=== PATIENT | male | born 1945 | race Caucasian/White ===

== ENCOUNTER 2025-05-31 05:24 | Day surgery (SDC) | payer OTHER ==
[2025-05-18 15:12] LABS: LEUKOCYTE ESTERASE ,URINE NEGATIVE (Neg); NITRITES, URINE NEGATIVE (Neg); OCCULT BLOOD,URINE NEGATIVE (Neg)
[2025-05-18 15:13] LABS: UA COLLECTION TYPE VOIDED
[2025-05-18 15:18] LABS: MUCUS STRANDS NONE SEEN /LPF (Neg); SQUAMOUS EPITHELIAL CELL,UR FEW /LPF (FEW)
[2025-05-18 15:23] LABS: PRE OP INR 1.1 INR; PRE OP PARTIAL THROMB. TIME 25.0 SECONDS (22-32); PRE OP PROTIME 10.8 SECONDS (9.0-12.0)
[2025-05-18 15:31] LABS: CREATININE 1.68 MG/DL (0.60-1.10); PRE OP ALT 24 U/L (30-65); PRE OP ANION GAP 5 (8-16); PRE OP AST 16 U/L (10-37); PRE OP BILIRUB, TOTAL 0.7 MG/DL (0.0-1.0); PRE OP GLUCOSE 172 MG/DL (70-104); PRE OP POTASSIUM 4.0 MMOL/L (3.4-5.1); PRE OP SODIUM 142 MMOL/L (135-145); TOTAL CARBON DIOXIDE 31.3 MMOL/L (24-32); eGFR 40 ML/MIN
[2025-05-18 15:38] LABS: MEAN PLATELET VOLUME 9.2 FL (7.4-10.4); PRE OP HEMATOCRIT 42.7 % (42.0-52.0); PRE OP HEMOGLOBIN 14.8 g/dL (14.0-17.9); PRE OP WHITE BLOOD COUNT 4.8 10'3 (4.8-10.8); RED CELL DISTRIBUTION WIDTH 13.9 % (11.5-14.5)
[2025-05-18 15:39] LABS: PRE OP PLATELET COUNT 94 X10'3 (140-440)
[~2025-05-31] VITALS: Ht 165.1 cm; Wt 82.9 kg
[2025-05-31] VITALS (8 sets, daily range): BP systolic 91–111; BP diastolic 51–66; PULSE 55–68; RESP 11–16; TEMP 98; O2SAT 93–100
[~2025-05-31 05:24] MED LIST: ATOR20TA66 PO; CHOL100017 PO; CYAN-36 PO; EMPA25TA PO; FOLI0.4T3 PO; GABA300C PO; LACT1CAP26 PO; LANTUS SUBCUT; SEMA1PEN3 SUBCUT; VIT1CAPS46 PO
[2025-05-31] MEDS: ceFAZolin 2gm/dext,iso 50mL 50 ML IV ONE (05:52)
[2025-05-31] MEDS: ringers solution, lacted 1,000 ML IV SCH (06:05)
[2025-05-31] MEDS ORDERED: cloNIDine hcl/PF 100mcg/ml inj ONE (07:16)
[2025-05-31] MEDS ORDERED: propofol inj 20 ML IV ONE (07:19)
[2025-05-31] MEDS ORDERED: ROPIVAcaine 0.5% (5mg/ml) 30ml vial ONE (07:20)
[2025-05-31] MEDS ORDERED: fentaNYL/PF 50MCG/1 ML 2ML syringe ONE (07:21)
[2025-05-31] MEDS ORDERED: midazolam 1 mg/ML 2ml injection ONE (07:21)
[2025-05-31] MEDS ORDERED: fentaNYL/PF 50MCG/1 ML 2ML syringe IV PRN ×2 (07:30)
[2025-05-31] MEDS ORDERED: morphine 4 MG/ML inj SYRINge IV PRN (07:30)
[2025-05-31] MEDS ORDERED: ringers solution, lacted 1,000 ML IV SCH (07:30)
[2025-05-31] MEDS ORDERED: ondansetron/PF 4mg/2ml inj IV PRN (07:30)
[2025-05-31] MEDS ORDERED: acetaminophen 1,000mg/100ml IV 100 ML IV PRN (07:30)
[2025-05-31] MEDS ORDERED: labetalol 20mg/4ml (5mg/ml) syringe IV PRN (07:30)
[2025-05-31] MEDS ORDERED: hydrALAZINE 20mg/ml inj. IV PRN (07:30)
[2025-05-31] MEDS ORDERED: ePHEDrine 50MG/ML INJ. ONE (08:11)
[2025-05-31] MEDS ORDERED: glycopyrrolate 0.2mg/ml inj ONE (09:21)
[2025-05-31] MEDS ORDERED: rocuronium 10mg/ml inj IV ONE (09:23)
--- NOTE | 2025-05-31 10:39 | OPERATIVE REPORT ---
Operative Report Providers to ~ Date of Procedure: May 31, 2025 Pre-Operative Diagnosis: Right shoulder rotator cuff tear Post-Operative Diagnosis SAME as PRE-Op Procedure Performed Right shoulder arthroscopy with limited debridement including subacromial decomp ression, mini open rotator cuff repair Surgeon: Maurilio Vizcarra MD Barrel Rifler Broach None Anesthesiologist: Mike Michel Type of Anesthesia: General, Regional Findings: Small nearly complete anterior supraspinatus crescent shaped tear. Solid repair was achieved with a double row repair construct Complications Not Prosthetics\Implants used: Arthrex 4.75 BioComposite SwiveLock anchors x4 was utilized for double row fixation Estimated Blood Loss: 75 cc Specimen Removed: None Description of Procedure: Patient is brought to the operating. Placed in a supine position. Preoperative antibiotics of 2 g of Ancef were given. General plus regional anesthesia was performed by the anesthesiologist. Patient was then positioned in a modified beach chair position. Bony prominences were well padded. Bilateral lower extremity SCDs were placed. The right upper extremity was prepped and draped in the usual sterile fashion. A time-out procedure was performed as per routine identifying the patient, site to be operated on, and procedure to be performed. Began with a insertion of the spinal needle into the posterior shoulder joint with injection of saline. I got a good flashback of saline. I then made a standard posterior portal incision and introduced the arthroscopic cannula. I established a separate anterior portal in the rotator interval. Diagnostic arthroscopy showed no significant glenohumeral joint arthrosis of either the glenoid or humeral head. There was a frayed labrum. Absent long head biceps tendon attachment. Superior fraying of the upper portion of the subscapularis tendon but the subscapularis was otherwise intact. From the articular side, no obvious supraspinatus tendon tear was seen. The infraspinatus attachment looks fine. Axillary recess was clear. With a radiofrequency ablator, I debrided the frayed labrum. I debrided the upper portion of the subscapularis. None of this required repair. I then went into the subacromial space. Instrumentation was removed and then inserted into the subacromial space including a posterior and anterior portal. Under direct visualization with the use of a spinal needle, I established a separate lateral portal. A radiofrequency ablator was used to perform a limited bursectomy. I debrided the undersurface of the acromion. I then used a high-speed bur to perform a subacromial decompression just of the anterior edge of the acromion to take down a subacromial spur. Through the arthroscope, I also identified the near full- thickness tear on the bursal surface so I then proceeded with my mini open rotator cuff repair. The lateral portal incision was extended proximally and distally. Care was taken to have this incision not go more than a proximally 4-5 cm off the lateral edge of the acromion to limit potential injury to the axillary nerve. Sharp dissection was carried out through skin. I got down to the deltoid fascia. This was split in line with the fibers again to the same extent as I documented with regards to staying above the axillary nerve. Once through the deltoid muscle, retractors were placed for visualization. I completed my bursectomy. After doing this, I could clearly see a near full-thickness bursal sided supraspinatus tendon tear. I then used a clean 15 blade and completed the tear on the more articular side of the tendon. Any frayed tendon was then debrided away until I had a nice smooth tendon surface. The total tendon tear width was about 1-1/2 cm. I debrided the footprint of the greater tuberosity get good bleeding surface.. I then placed medial row anchors. I initially tried FiberTak anchors but they would not hold in the bone so I replaced them with two, 4.75 BioComposite SwiveLock anchors. I then passed the fiber tape up through the rotator cuff using a scorpion needle Passer. I then formed a suture bridge construct. I then placed my lateral row anchors just off of the lateral edge of the acromion. Very solid repair of the rotator cuff was achieved. I did not have over compression of the footprint. With mobilization of the arm, I saw no gapping of the construct. I felt this was a good repair. At this point, I palpated the entire area and rotated the arm so I visually assessed the tendon. No further tears were noted. I then thoroughly irrigated the wound with IrriSept and then saline irrigation. I began with closure by closing the deltoid split interval with FiberWire suture. Deep layers were closed with 0 Vicryl suture, subcutaneous layers were closed with 2-0 Vicryl suture and skin was closed with 3-0 Stratafix suture. The wound was sealed with Dermabond. Arthroscopic portals were closed with 3-0 nylon suture. Sterile dressings were applied. Arm was protected in a shoulder abduction orthotic. The purpose of this is to provide proper mobilization and protection of the shoulder to limit re-injury to the rotator cuff. Final sponge and needle counts were correct. Patient was thereafter recovered without complications and sent to recovery in good condition. Counts repoted as correct: Yes X-Ray findings: Per PAT Cond no x-ray MAURILIO VIZCARRA MD May 31, 2025 10:39
== END 2025-05-31 11:14 | disposition home or self-care (01) ==
LOC: PAS 05:24
PROVIDERS: ATTEND Specialist
DX: M75.121 Complete rotator cuff tear or rupture of right shoulder, not specified as traumatic (principal); M25.511 Pain in right shoulder; G89.18 Other acute postprocedural pain; I10 Essential (primary) hypertension; E11.9 Type 2 diabetes mellitus without complications; E78.5 Hyperlipidemia, unspecified; I25.2 Old myocardial infarction; Z87.891 Personal history of nicotine dependence; Z86.73 Personal history of transient ischemic attack (TIA), and cerebral infarction without residual deficits; Z79.891 Long term (current) use of opiate analgesic; Z79.899 Other long term (current) drug therapy; Z95.1 Presence of aortocoronary bypass graft
CPT/HCPCS: 23412; 29823; 29826; 64415; 80053; 81001; 82948; 85025; 85610; 85730; C1713; J0735; J2250; J2704; J2710; J2795; J3010; J3490; J7120; Z7506; Z7508; Z7512; A4565; A4618; A6449; A6455; A7000